=== PATIENT | female | born 1950 | race Caucasian/White ===

== ENCOUNTER 2019-04-16 21:30 | Inpatient (IN) ==
[2019-04-16] MEDS ORDERED: TESSALON PO ONE (22:25)
[2019-04-16] MEDS ORDERED: DUONEB (A & A) INH ONE (22:25)
[2019-04-16 23:19] LABS: ESTIMATED GFR > 60
[2019-04-16 23:22] LABS: AGAP 13; ALBUMIN 4.2 g/dL (3.5-5.0); ALKALINE PHOSPHATASE 26 U/L (32-104); BUN 16 mg/dL (8-22); CALCIUM 7.8 mg/dL (8.8-10.2); CHLORIDE 88 mmol/L (98-107); COSMO 266; CREATININE 0.8 mg/dL (0.5-0.9); GLUCOSE 102 mg/dL (70-104); GOT 25 U/L (10-30); GPT 13 U/L (10-36); POTASSIUM 2.8 mmol/L (3.5-5.1); SODIUM 132 mmol/L (136-145); TCO2 31 mmol/L (25-35); TOTAL PROTEIN 6.5 g/dL (6.3-8.3)
[2019-04-16 23:56] LABS: BASO# 0.01 X1000 (0.0-0.2); BASO% 0.1 % (0.0-0.8); EOS# 0.03 X1000 (0.0-0.7); EOS% 0.3 % (0.0-10.0); HEMATOCRIT 36.2 % (37.0-47.0); HEMOGLOBIN 12.1 g/dL (12.0-16.0); IMM GRAN# 0.03 X1000 (0.0-0.04); IMM GRAN% 0.3 % (0.0-0.5); LYMPH# 0.66 X1000 (1.2-3.4); LYMPH% 6.7 % (20.5-51.1); MCH 29.4 PG (27-31); MCHC 33.4 g/dL (33-37); MCV 87.9 FL (81-99); MONO# 0.68 X1000 (0.11-0.59); MONO% 6.9 % (1.7-9.3); MPV 11.9 FL (7.4-10.4); NEUT# 8.47 X1000 (1.4-6.5); NEUT% 85.7 % (42.2-75.2); PLT 145 X1000 (130-400); RBC 4.12 XMIL (4.2-5.4); RDW 12.9 % (11.5-14.5); WBC 9.88 X1000 (4.8-10.8)
--- NOTE | 2019-04-17 00:22 | EKG Report ---
Test Performed on : 04/16/2019 10:53:49 PM Test Reason : sob Blood Pressure : / mmHG Vent. Rate : 086 BPM Atrial Rate : 086 BPM P-R Int : 142 ms QRS Dur : 078 ms QT Int : 412 ms P-R-T Axes : 065 027 019 degrees QTc Int : 493 ms Poor data quality, interpretation may be adversely affected Sinus rhythm. with occasional premature ventricular complexes. Cannot rule out Anterior infarct , age undetermined Abnormal ECG When compared with ECG of 13-APR-2018 18:28, premature ventricular complexes. are now present Unconfirmed Result
[2019-04-17] MEDS ORDERED: ZITHROMAX 500 MG/NS 500 MG/250 ML IVPB IV ONE (00:41)
[2019-04-17] MEDS ORDERED: ROCEPHIN 2 GM in NS 50 ML IV ONE (00:42)
[2019-04-17] MEDS ORDERED: TYLENOL PO PRN ×2 (01:06→10:06)
[2019-04-17] MEDS ORDERED: NS 1,000 ML IV ONE (01:06)
[2019-04-17] MEDS ORDERED: ZOFRAN IV PRN (01:06)
[2019-04-17] MEDS ORDERED: MORPHINE IV PRN (01:06)
--- NOTE | 2019-04-17 01:06 | PROVIDER DOCUMENTATION ---
This chart was entered by Melissa Diaz Scribe, acting as scribe for Juan Manuel Garcia MD. HPI-Respiratory General - General Chief Complaint: Cough Stated Complaint: cough fever since Thursday Time Seen by Provider: 04/16/19 22:12 Source: patient Allergies/Adverse Reactions: Patient Allergies Allergy/AdvReac Type Severity Reaction Status Date / Time No Known Allergies Allergy Verified 04/16/19 22:07 Home Medications: Home Medication List Medication Instructions Recorded Confirmed Last Taken Type Sertraline HCl [Zoloft] 100 mg PO HS 09/15/14 04/16/19 1 Day Ago History ~12/04/16 Esomeprazole [Nexium] 40 mg PO BID 03/19/15 04/16/19 12/05/16 History Ferrous Sulfate [Iron] 325 mg PO DAILY 03/19/15 04/16/19 1 Day Ago History ~12/04/16 Meclizine [Antivert] 25 mg PO PRN PRN 03/19/15 04/16/19 1 Day Ago History ~12/04/16 Cyclobenzaprine [Flexeril] 10 mg PO TID #20 tablet 12/05/16 04/16/19 Unknown Rx Levothyroxine Sodium 88 mcg PO DAILY 12/05/16 04/16/19 12/05/16 History Trazodone [Desyrel] 100 mg PO QHS 12/05/16 04/16/19 1 Day Ago History ~12/04/16 Oxycodone HCl 10 mg PO TID 12/28/17 04/16/19 Unknown History Buspirone [Buspar] 1 tab PO DAILY 04/16/19 04/16/19 Unknown History Fenofibrate [Tricor] 145 mg PO DAILY 04/16/19 04/16/19 Unknown History Onabotulinumtoxina [Botox Cosmetic] 100 unit IJ DIRECTED 04/16/19 04/16/19 Unknown History Pravastatin Sodium 80 mg PO QHS 04/16/19 04/16/19 Unknown History - History of Present Illness-Resp Nature of Presenting Problem: 68 y/o female presents to the ED with complaint of cough, fever, and increasing SOB since Thursday. The patient gives a history of bronchitis, hyperlipidemia, and chronic pain. Onset/Duration: reports: 4 days ago Timing: reports: getting worse Exposure: reports: unknown cause Cough Quality/Degree: reports: productive cough Episode Frequency: no prior episodes Current Respiratory Medication Therapy: Initiated see nurses note Associated Symptoms: reports: chest pain/soreness, fever/chills, shortness of breath Similar Symptoms Previously?: No Recently seen or treated by another doctor?: No Review of Systems - Adult - REVIEW OF SYSTEMS - ADULT Constitutional: reports: fever. denies: weight gain, weight loss Eyes: reports: no symptoms reported Ears, Nose, Mouth & Throat: reports: no symptoms reported Cardiovascular: denies: irregular heart rate, orthopnea, palpitations, syncope Respiratory: reports: cough (productive), pleurisy, shortness of breath. denies: hemoptysis Gastrointestinal: reports: no symptoms reported Genitourinary: reports: no symptoms reported Musculoskeletal: reports: no symptoms reported Integumentary: reports: no symptoms reported Neurological: reports: no symptoms reported Psychiatric: reports: no symptoms reported Endocrine: reports: no symptoms reported Hematologic/Lymphatic: reports: no symptoms reported Allergic/Immunologic: reports: no symptoms reported All Other Systems: Reviewed and Negative Past History - Adult - PAST MEDICAL HISTORY-ADULT Review of Records: reports: Old Records Reviewed, Nursing Assessment Review, Medications Reviewed Major Childhood Illnesses: reports: denies history Cardiovascular: reports: denies history Respiratory: reports: denies history Gastrointestinal: reports: denies history Obstetrical/Gynecological: reports: denies history Genitourinary: reports: denies history Musculoskeletal: reports: arthritis, chronic pain, fibromyalgia Neurological: reports: denies history Psychiatric: reports: anxiety, depression Endocrine/Immune: reports: denies history Other Conditions: reports: denies history - PRIOR SURGERIES/PROCEDURES Surgical/Procedure History: reports: hysterectomy, other (carpel tunnel left hand) - PRIOR HOSPITALIZATIONS Prior Hospitalizations: reports: none - IMMUNIZATION STATUS Childhood Immunizations: See Nurse Assessment Flu Vaccine: See Nurse Assessment - FAMILY HISTORY Family History: reviewed, not pertinent - SOCIAL HISTORY Smoking: non-smoker Physical Exam-General - PHYSICAL EXAM-ADULT Initial Vital Signs Reviewed: Yes - CONSTITUTIONAL General Appearance: alert, mild distress - HEAD, EARS, NOSE, MOUTH & THROAT HENMT: normocephalic/atraumatic - MUSCULOSKELETAL Extremity: no pedal edema - SKIN Integumentary: normal color, warm/dry. negative: diaphoresis - NEUROLOGIC Neurologic: grossly normal Progress - PLAN OF CARE/RESULTS Progress/Plan/Lab Results: Vital Signs - 8 hr 04/16/19 21:41 04/16/19 22:48 Temperature 99.4 F Pulse Rate 86 86 Respiratory Rate 18 16 Blood Pressure 130/055 O2 Sat by Pulse Oximetry 89 L 94 L Laboratory Results - last 24 hr 04/16/19 04/16/19 04/16/19 22:40 22:40 22:40 WBC 9.88 RBC 4.12 L Hgb 12.1 Hct 36.2 L MCV 87.9 MCH 29.4 MCHC 33.4 RDW Std Deviation 12.9 Plt Count 145 MPV 11.9 H Immature Gran % (Auto) 0.3 Neut % (Auto) 85.7 H Lymph % (Auto) 6.7 L [place] % (Auto) 6.9 Eos % (Auto) 0.3 Baso % (Auto) 0.1 Immature Gran # (Auto) 0.03 Neut # (Auto) 8.47 H Lymph # (Auto) 0.66 L [place] # (Auto) 0.68 H Eos # (Auto) 0.03 Baso # (Auto) 0.01 D-Dimer, Quantitative 1.10 H Sodium Potassium Chloride Carbon Dioxide Anion Gap BUN Creatinine Estimated GFR/1.73 m2 BUN/Creatinine Ratio Glucose Calculated Osmolality Calcium Total Bilirubin AST ALT Alkaline Phosphatase Troponin T < 0.010 Uth-U-Lbtvojfycyg Pept Total Protein Albumin Globulin Albumin/Globulin Ratio Plasma Lactate 04/16/19 04/16/19 04/16/19 22:40 22:40 22:40 WBC RBC Hgb Hct MCV MCH MCHC RDW Std Deviation Plt Count MPV Immature Gran % (Auto) Neut % (Auto) Lymph % (Auto) [place] % (Auto) Eos % (Auto) Baso % (Auto) Immature Gran # (Auto) Neut # (Auto) Lymph # (Auto) [place] # (Auto) Eos # (Auto) Baso # (Auto) D-Dimer, Quantitative Sodium 132 L Potassium 2.8 L Chloride 88 L Carbon Dioxide 31 Anion Gap 13 BUN 16 Creatinine 0.8 Estimated GFR/1.73 m2 > 60 BUN/Creatinine Ratio 20 Glucose 102 Calculated Osmolality 266 Calcium 7.8 L Total Bilirubin 1.00 AST 25 ALT 13 Alkaline Phosphatase 26 L Troponin T Alp-P-Pahtypaojcc Pept 312 Total Protein 6.5 Albumin 4.2 Globulin 2.0 Albumin/Globulin Ratio 2.0 Plasma Lactate 1.4 Orders Category Date Time Status Nursing- Obtain EKG ONCE Care 04/16/19 22:23 Active CTA [CT ANGIOGRM PULMONARY ARTERIES] [CT] Stat Exams 04/16/19 23:36 Ordered cxr [CHEST-1 VIEW] [RAD] Stat Exams 04/16/19 22:23 Taken BLOOD CULTURE [BLDCUL] Stat Lab 04/16/19 22:24 Ordered CBC WITH ELECTRONIC DIFF [HEME] Stat Lab 04/16/19 22:40 Completed COMPREHENSIVE METABOLIC PANEL [CHEM] Stat Lab 04/16/19 22:40 Completed D-DIMER [COAG] Stat Lab 04/16/19 22:40 Completed LACTATE, PLASMA [CHEM] Stat Lab 04/16/19 22:40 Completed PRO B-NATRIURETIC PEPTIDE Stat Lab 04/16/19 22:40 Completed TROPONIN T Stat Lab 04/16/19 22:40 Completed Albuterol 2.5MG/Ipratrop 0.5MG [Duoneb (A & A)] Med 04/16/19 22:25 Discontinued 3 ml INH NOW ONE Azithromycin 500 mg/Ns [Zithromax 500 mg/Ns] Med 04/17/19 00:41 Active 500 mg in 250 ml IV NOW Benzonatate [Tessalon] Med 04/16/19 22:25 Discontinued 200 mg PO NOW ONE CefTRIAXONE [Rocephin] 2 gm Med 04/17/19 00:42 Active 0.9% Sodium Chloride Inj [Ns] 50 ml IV NOW Aerosol Treatments Routine Oth 04/16/19 22:25 Completed Aerosol Treatments Stat Oth 04/16/19 22:25 Completed EKG [EKG] Stat Ther 04/16/19 22:23 Draft Result Diagrams: 04/16/19 22:40 04/16/19 22:40 - EKG 1 Time of EKG reading by physician:: 22:53 EKG Read and Signed by:: Juan Manuel Garcia EKG Interpretation (*Must complete 3 of following elements*): Abnormal Rate: 86 Rhythm: Sinus w/ occasional PVC Comments: cannot rule out anterior infarct age undetermined, poor quality EKG - CONSULTS/PCP/HOSPITALIST Notification #1 *Consult/PCP/Hospitalist*: Dr. Perez, Hospitalist Time Discussed: 00:59 Reason/Comments: pneumonia, low O2 sats Consult Disposition: Admit Departure - Departure Date of Disposition Decision: 04/17/19 Time of Disposition Decision: 01:05 DIAGNOSIS: Pneumonia Qualifiers: Pneumonia type: due to unspecified organism Laterality: right Lung location: upper lobe of lung Qualified Code(s): J18.1 - Lobar pneumonia, unspecified organism Disposition: ADMITTED INPATIENT 09 Certified Medical Emergency: Emergent Condition: Stable Referrals and Follow-Ups: Gui Roa Jr, MD [Primary Care Provider] - - Critical Care Note This patient required my direct & personal management of CC.: No Attestation - Physician/ GUSTAVO Attestation Patient care was provided by Advanced Practice Provider:: No The physician spent face to face time with patient:: Yes Advanced Practice Provider documentation review:: Supervising physician onsite and consulted in the evaluation and care of this patient. The physician did have a face to face encounter with the patient. This chart was documented by the indicated scribe, (Melissa Diaz, Lynnibgraciela) and accurately reflects the services I performed and decisions made by me, Juan Manuel Garcia MD, as attested by the provider's signature.
[2019-04-17] MEDS ORDERED: ROCEPHIN ONE (01:51)
[2019-04-17] MEDS ORDERED: NS 100 ML ONE (01:51)
--- NOTE | 2019-04-17 07:16 | Diag Imaging Result Doc PS360 ---
EXAM: CHEST-1 VIEW 04/16/2019 HISTORY: sob TECHNIQUE: Erect AP portable at 2313 COMMENT: The inspiration is less optimal than on 08/22/2015. There is some increased opacity in the retrocardiac portion of the left lower lobe. There are granulomatous calcifications in the mediastinum and right hilum and the right lower lobe. IMPRESSION: Atelectasis versus pneumonia left lower lobe. Electronically signed by Duncan Willoughby 04/17/2019 7:13 AM
--- NOTE | 2019-04-17 08:27 | Diag Imaging Result Doc PS360 ---
EXAM: CT ANGIOGRM PULMONARY ARTERIES 04/16/2019 HISTORY: r/o PE TECHNIQUE: This exam was performed using automated exposure control, adjustment of mA or kV according to patient size, and/or use of iterative reconstruction technique. COMMENT: There are no filling defects in the pulmonary arteries. The aorta is not distended and there is no evidence of dissection. There are granulomata and calcified nodes are present in both dipak. There is a noncalcified node in the aorticopulmonary window region measuring over 15 mm. There is a tiny pleural effusion on the right and trace pleural fluid on the left. The esophagus is slightly distended with gas superiorly. There is a small pericardial effusion. There are patchy ill-defined opacities in both lower lobes particularly the right lower lobe near the hilum. There is also particular opacity in the superior segment of the left lower lobe and patchy alveolar opacities are present in both upper lobes particularly in the lingula. There is no evidence of acute bony abnormality. Numerous granulomata are present in the spleen. There is a small hiatal hernia. There appears to be some fluid or debris in the bronchi in the lower lobes which may be indicative of aspiration. IMPRESSION: No evidence of pulmonary emboli. Bronchopneumonia. The possibility of aspiration pneumonia cannot be excluded. Electronically signed by Duncan Willoughby 04/17/2019 8:24 AM
[2019-04-17] MEDS ORDERED: ANTIVERT PO PRN (10:05)
[2019-04-17] MEDS ORDERED: ONABOTULINUMTOXINA 100 UNIT IJ SCH (10:15)
[2019-04-17] MEDS ORDERED: BUSPAR PO SCH (10:15)
[2019-04-17] MEDS ORDERED: ZOLOFT PO SCH (10:15)
[2019-04-17] MEDS: TRICOR PO SCH (11:12)
[2019-04-17] MEDS: NEXIUM PO SCH ×2 (11:12→22:18)
[2019-04-17] MEDS: FERROUS SULFATE PO SCH (11:38)
[2019-04-17 11:55] LABS: HEMATOCRIT 36.1 % (37.0-47.0); HEMOGLOBIN 11.9 g/dL (12.0-16.0); MPV 12.5 FL (7.4-10.4); RBC 4.1 XMIL (4.2-5.4); RDW 12.9 % (11.5-14.5); WBC 8.38 X1000 (4.8-10.8)
[2019-04-17] MEDS: ZOFRAN IV PRN (12:10)
[2019-04-17 12:11] LABS: ESTIMATED GFR > 60
[2019-04-17] MEDS: FLEXERIL PO SCH ×2 (12:35→16:24)
[2019-04-17 12:48] LABS: AGAP 14; ALBUMIN 3.9 g/dL (3.5-5.0); ALKALINE PHOSPHATASE 53 U/L (32-104); BUN 9 mg/dL (8-22); CALCIUM 7.9 mg/dL (8.8-10.2); CHLORIDE 90 mmol/L (98-107); COSMO 264; CREATININE 0.7 mg/dL (0.5-0.9); GLUCOSE 116 mg/dL (70-104); GOT 23 U/L (10-30); GPT 12 U/L (10-36); MAGNESIUM 1.6 mg/dL (1.5-2.7); POTASSIUM 2.9 mmol/L (3.5-5.1); SODIUM 132 mmol/L (136-145); TCO2 29 mmol/L (25-35); TOTAL PROTEIN 7.1 g/dL (6.3-8.3)
[2019-04-17] MEDS ORDERED: TESSALON PO PRN (13:50)
--- NOTE | 2019-04-17 14:30 | HISTORY AND PHYSICAL ---
CHIEF COMPLAINT: Cough x4 days. HISTORY OF PRESENT ILLNESS: This is a 68-year-old female with a history of gastroesophageal reflux disease, hypertension, iron-deficiency anemia, and fibromyalgia. She presents to the emergency room complaining of 4 days of cough and increasing shortness of breath with subjective fevers. She denies any syncope or dizziness, any chest pain or palpitations. PAST MEDICAL HISTORY: 1. Hypertension. 2. Hyperlipidemia. 3. Hypothyroid. 4. Fibromyalgia. 5. Chronic pain. PAST SURGICAL HISTORY: Total knee replacement, bilateral carpal tunnel surgery. SOCIAL HISTORY: She denies alcohol, tobacco, or illicit drug use. ALLERGIES: No known drug allergies. HOME MEDICATIONS: A list will be obtained by the nursing staff and once verified will review and restart as appropriate. REVIEW OF SYSTEMS: Discussed with patient with pertinent positives stated in the HPI. She denied any syncope or dizziness; any chest pain or palpitations, PND, orthopnea; any nausea, vomiting, diarrhea, constipation; any black or bloody vomitus or stools, hematuria, dysuria, frequency, urgency. PHYSICAL EXAMINATION: GENERAL: This is a 68-year-old female who is sitting up in the bed in no distress. VITAL SIGNS: Blood pressure is 119/84 with a heart rate of 75, respirations are 20, temperature is 98.1 degrees oral with room air saturations 100%. EYES: Pupils equal, round, and react to light. EOMs are intact. Sclerae are anicteric. HEENT: Head is normocephalic, atraumatic. Mucous membranes are moist. NECK: Supple with trachea midline. CARDIOVASCULAR: Regular rate and rhythm. S1 and S2 are appreciated. No murmur. She has no lower extremity edema. Calves are nontender bilateral with peripheral pulses palpable x4 extremities. PULMONARY: Breath sounds are clear with no increased work of breathing noted. Chest rise and falls symmetric with respiration. Chest wall is nontender to palpation. GASTROINTESTINAL: Abdomen is soft, nontender, nondistended. Bowel sounds in all 4 quadrants. : No CVA or suprapubic tenderness. SKIN: Warm and dry. NEUROLOGIC: She is alert and oriented x3. LABORATORY DATA: WBC is 9.8 with hemoglobin 12.1, hematocrit 36.2, and platelets of 145,000. D- dimer is 1.10. Sodium 132, potassium 2.8, BUN 16, creatinine 0.8 with a glucose of 102. Chest x-ray revealed atelectasis versus left lower lobe pneumonia. CTA pulmonary revealed no evidence of pulmonary emboli. Bronchopneumonia. Blood cultures are pending. ASSESSMENT AND PLAN: 1. Left lower lobe pneumonia. 2. Cough. 3. Elevated D-dimer with a clear to auscultation pulmonary negative for pulmonary emboli. 4. Hyponatremia. 5. Hypokalemia. 6. History of hypothyroid. 7. History of iron-deficiency anemia. Aware. 8. Gastroesophageal reflux disease. 9. Deep venous thrombosis prophylaxis. PLAN: The patient has been admitted to the medical-surgical floor and placed on telemetry which will continue. Incentive spirometer q.4 hours. Up in the chair 3 times a day with meals and p.r.n. We will obtain a bilateral lower extremity Doppler. Identify the home medications and continue. We will supplement potassium and recheck labs in the morning. Continue with IV normal saline hydration and recheck potassium in the morning. We will continue her levothyroxine. Tessalon Perles for cough. We will continue antibiotic coverage of Rocephin and azithromycin. Further treatments pending hospital course. Plan was discussed with Dr. Perez. Dictated by KILO Becerra for Wicho Perez MD cc: KILO Becerra MD
--- NOTE | 2019-04-17 14:46 | HISTORY AND PHYSICAL ---
ADDENDUM: Patient seen and examined by myself. Full note dictated and discussed with nurse practitioner. Patient presented to the hospital with increased cough, congestion, and shortness of breath. She has a history of fibromyalgia and depression. She was subsequently diagnosed with pneumonia. We are going to admit her to the hospital, place her on antibiotics, and oxygen due to her acute hypoxic respiratory failure, and we will follow. cc: Wicho Perez MD
[2019-04-17] MEDS: PERCOCET-10 PO SCH ×2 (14:47→22:15)
[2019-04-17] MEDS: POTASSIUM CHLORIDE 20 MEQ/SWI 20 MEQ/100 ML IVPB IV SCH ×2 (14:47→22:17)
--- NOTE | 2019-04-17 16:45 | Vascular Study Report ---
EXAM: Venous U/S Bilateral Legs 04/17/2019 HISTORY: elevated ddimer TECHNIQUE: Compression venous ultrasound with color Doppler flow, bilateral legs COMMENT: The deep veins of both lower extremities are compressible and demonstrate normal color Doppler flow with augmentation. There are no abnormal fluid collections demonstrated. There is no evidence of superficial venous thrombosis. IMPRESSION: No evidence of deep venous thrombosis. Electronically signed by Duncan Willoughby 04/17/2019 4:43 PM
[2019-04-17] MEDS ORDERED: MIRALAX PO PRN (18:06)
[2019-04-17] MEDS: PRAVACHOL PO SCH (22:15)
[2019-04-17] MEDS: DESYREL PO SCH (22:18)
[2019-04-18] MEDS: NEXIUM PO SCH ×2 (01:27→22:51)
[2019-04-18] MEDS: DESYREL PO SCH ×2 (01:27→22:50)
[2019-04-18] MEDS: ROCEPHIN 1 GM in NS 50 ML IV SCH (01:28)
[2019-04-18] MEDS: SYNTHROID PO SCH (06:09)
[2019-04-18] MEDS: PERCOCET-10 PO SCH ×3 (06:09→22:49)
[2019-04-18 06:31] LABS: HEMATOCRIT 32.8 % (37.0-47.0); HEMOGLOBIN 10.8 g/dL (12.0-16.0); MCHC 32.9 g/dL (33-37); MCV 88.2 FL (81-99); MPV 12.7 FL (7.4-10.4); RBC 3.72 XMIL (4.2-5.4); RDW 12.7 % (11.5-14.5); WBC 6.32 X1000 (4.8-10.8)
[2019-04-18 06:46] LABS: AGAP 10; ALBUMIN 3.3 g/dL (3.5-5.0); ALKALINE PHOSPHATASE 51 U/L (32-104); BUN 8 mg/dL (8-22); CALCIUM 7.6 mg/dL (8.8-10.2); CHLORIDE 94 mmol/L (98-107); COSMO 266; CREATININE 0.7 mg/dL (0.5-0.9); ESTIMATED GFR > 60; GLUCOSE 89 mg/dL (70-104); GOT 18 U/L (10-30); GPT 10 U/L (10-36); MAGNESIUM 1.7 mg/dL (1.5-2.7); POTASSIUM 3.1 mmol/L (3.5-5.1); SODIUM 134 mmol/L (136-145); TCO2 31 mmol/L (25-35); TOTAL PROTEIN 6.2 g/dL (6.3-8.3)
[2019-04-18] MEDS: FLEXERIL PO SCH (10:07)
[2019-04-18] MEDS: TRICOR PO SCH (10:08)
[2019-04-18] MEDS: FERROUS SULFATE PO SCH (10:08)
[2019-04-18] MEDS: ZITHROMAX PO SCH (10:13)
[2019-04-18] MEDS: DUONEB (A & A) INH SCH ×3 (10:24→21:20)
[2019-04-18] MEDS: ZOLOFT PO SCH (17:18)
[2019-04-18] MEDS: BUSPAR PO SCH (17:18)
[2019-04-18] MEDS: MYCOSTATIN SUSP PO SCH (22:49)
[2019-04-18] MEDS: PRAVACHOL PO SCH (22:51)
[2019-04-19] MEDS: ROCEPHIN 1 GM in NS 50 ML IV SCH (03:15)
[2019-04-19] MEDS: DUONEB (A & A) INH SCH ×6 (03:48→23:11)
[2019-04-19] MEDS: NEXIUM PO SCH ×2 (06:36→21:52)
[2019-04-19] MEDS: SYNTHROID PO SCH (06:36)
[2019-04-19] MEDS: PERCOCET-10 PO SCH ×3 (06:36→21:52)
--- NOTE | 2019-04-19 07:33 | PROGRESS NOTE ---
DATE: 04/18/2019 SUBJECTIVE: Patient notes her cough has improved. She still has some shortness of breath. Denies any fevers or chills. States her abdominal pain appears to be better as she is preparing to eat breakfast. PHYSICAL EXAMINATION: Vitals: Temperature 98, pulse 70, respiratory rate 18, blood pressure 101/58. General: Patient is awake. She is alert. She is in no current respiratory distress. HEENT: Normocephalic. Neck: Supple. Cardiovascular: Regular rate. Chest: Minimal wheezing. No crackles. Good air movement. Abdomen: Soft, nondistended. Extremities: Moves all extremities. Neurologic: No focal changes. ASSESSMENT: 1. Left lower lobe pneumonia. 2. Fibromyalgia. 3. Hyponatremia. 4. Hypokalemia. 5. Hypothyroidism. PLAN: We will continue patient in the hospital. Continue oxygen, breathing treatments, incentive spirometry. Continue antibiotics. Discussed with patient the need to get out of bed today and at least sit in a chair and will follow. cc: Wicho Perez MD
[2019-04-19] MEDS ORDERED: KLOR-CON PO ONE (09:19)
[2019-04-19] MEDS: MYCOSTATIN SUSP PO SCH ×4 (09:30→21:52)
[2019-04-19] MEDS: TRICOR PO SCH (09:30)
[2019-04-19] MEDS: ZITHROMAX PO SCH (09:30)
--- NOTE | 2019-04-19 12:10 | PROGRESS NOTE ---
DATE: 04/19/2019 SUBJECTIVE: The patient reports still having some cough, but getting better in comparing with admission. Denies any fever or chills. OBJECTIVE: Vital Signs: Temperature 98.3 degrees, heart rate 74, respiratory rate 16, blood pressure 112/52, O2 saturation 97% on room air. General: This is a chronically ill-appearing, 68- year-old, female, lying in bed in no acute distress. Cardiovascular: S1, S2 heard. No murmurs, gallops, or rubs. Regular rate and rhythm. Respiratory: Clear bilaterally to auscultation. Minimal wheezing noted. No crackles noted. The patient is not using any accessory muscles or having work of breathing. Abdomen: Soft, nontender to palpation. Bowel sounds present. No organomegaly. Extremities: No clubbing, cyanosis, or edema. Peripheral pulses present in both legs. Neurological: The patient is alert and oriented x3. Moves all 4 extremities. LABORATORY DATA: Reviewed. ASSESSMENT AND PLAN: 1. Left lower lobe pneumonia. The patient continues to be on azithromycin and ceftriaxone. Today is day #2 of medications. I think at this point, we will continue with the same management. 2. Fibromyalgia. Will continue with the current pain medications. 3. Hyponatremia. There are no labs from today, but from yesterday, sodium was almost back to normal. 4. Hyponatremia. Will repeat potassium today, and will check BMP tomorrow. 5. Hypothyroidism. Will continue to monitor. 6. Physical deconditioning. Physical Therapy will be consulted. cc: Prasad Hardy MD
[2019-04-19] MEDS: BUSPAR PO SCH (17:50)
[2019-04-19] MEDS: ZOLOFT PO SCH (17:50)
[2019-04-19] MEDS: PRAVACHOL PO SCH (21:53)
[2019-04-19] MEDS: DESYREL PO SCH (23:13)
[2019-04-20 01:28] LABS: BILIRUBIN URINE NEGATIVE (NEGATIVE); BLOOD URINE NEGATIVE (NEGATIVE); GLUCOSE URINE NEGATIVE (NEGATIVE); KETONE URINE NEGATIVE (NEGATIVE); LEUKOCYTES URINE NEGATIVE (NEGATIVE); NITRITE URINE NEGATIVE (NEGATIVE); PROTEIN URINE NEGATIVE (NEGATIVE); SP GRAVITY URINE 1.005; UROBILINOGEN URINE NORMAL
[2019-04-20 01:29] LABS: CLARITY CLEAR (CLEAR); COLOR YELLOW
[2019-04-20 01:42] LABS: URINE BACTERIA 1+ /HFP; URINE CAST NONE SEEN /LPF; URINE CRYSTAL NONE SEEN /HPF; URINE EPITHELIAL CELLS <10 /HPF (<10); URINE SOURCE CLEAN CATCH; URINE WBC <10 /HPF (<10); URINE YEAST NONE SEEN /HPF
[2019-04-20] MEDS: DUONEB (A & A) INH SCH ×4 (03:11→15:20)
[2019-04-20] MEDS: ROCEPHIN 1 GM in NS 50 ML IV SCH (03:35)
[2019-04-20] MEDS: PERCOCET-10 PO SCH ×3 (06:45→22:57)
[2019-04-20] MEDS: NEXIUM PO SCH ×2 (06:45→22:56)
[2019-04-20] MEDS: SYNTHROID PO SCH (06:46)
[2019-04-20 06:50] LABS: AGAP 9; ALBUMIN 3.9 g/dL (3.5-5.0); BUN 5 mg/dL (8-22); CALCIUM 9.3 mg/dL (8.8-10.2); CHLORIDE 93 mmol/L (98-107); COSMO 271; CREATININE 0.6 mg/dL (0.5-0.9); ESTIMATED GFR > 60; GLUCOSE 96 mg/dL (70-104); PHOSPHORUS 2.4 mg/dL (2.7-4.5); POTASSIUM 3.6 mmol/L (3.5-5.1); SODIUM 137 mmol/L (136-145); TCO2 35 mmol/L (25-35)
[2019-04-20] MEDS: ZOFRAN IV PRN (09:06)
--- NOTE | 2019-04-20 09:39 | Diag Imaging Result Doc PS360 ---
EXAM: CHEST-2 VIEWS HISTORY: Left LL pna TECHNIQUE: PA and Lateral chest x-ray COMPARISON: 04/16/2019 FINDINGS: There is cardiomegaly. There is increasing alveolar infiltrate right upper lobe. No definite change in bilateral lower lobe consolidation. There is a small left pleural effusion. Pulmonary vasculature does not appear congested. Upper abdominal small bowel loops appear prominent. Correlate clinically. IMPRESSION: 1.Increasing right upper lobe consolidation. 2.Unchanged bibasilar consolidation left greater than right. 3.Small left effusion. 4.Possible dilated small bowel loops within the upper abdomen. Correlate clinically and follow-up as indicated. Electronically signed by Rachel Rosenberg 04/20/2019 9:37 AM
[2019-04-20] MEDS: TRICOR PO SCH (09:43)
[2019-04-20] MEDS: MYCOSTATIN SUSP PO SCH ×4 (09:43→22:57)
[2019-04-20] MEDS: ZITHROMAX PO SCH (09:43)
[2019-04-20] MEDS ORDERED: VANCOMYCIN IV PER PHARMACY MISC SCH (10:15)
[2019-04-20] MEDS: ZOSYN 3.375 GM in NS 50 ML IV SCH ×3 (11:00→22:57)
[2019-04-20] MEDS ORDERED: VANCOMYCIN 1,500 MG in NS 250 ML IV ONE (11:30)
[2019-04-20 12:16] LABS: BASO# 0.03 X1000 (0.0-0.2); BASO% 0.4 % (0.0-0.8); EOS# 0.34 X1000 (0.0-0.7); EOS% 4.9 % (0.0-10.0); HEMATOCRIT 36.9 % (37.0-47.0); HEMOGLOBIN 11.9 g/dL (12.0-16.0); IMM GRAN# 0.13 X1000 (0.0-0.04); IMM GRAN% 1.9 % (0.0-0.5); LYMPH# 1.06 X1000 (1.2-3.4); LYMPH% 15.4 % (20.5-51.1); MCHC 32.2 g/dL (33-37); MONO# 0.69 X1000 (0.11-0.59); MPV 13.1 FL (7.4-10.4); NEUT# 4.62 X1000 (1.4-6.5); NEUT% 67.4 % (42.2-75.2); PLT 228 X1000 (130-400); RDW 12.9 % (11.5-14.5); WBC 6.87 X1000 (4.8-10.8)
--- NOTE | 2019-04-20 12:28 | PROGRESS NOTE ---
DATE: 04/20/2019 SUBJECTIVE: Patient reports still having some cough and mild shortness of breath while she was walking with Physical Therapy. No other complaints noted. OBJECTIVE: Vital Signs: Temperature 97.8 degrees, heart rate 72, respiratory rate 12, blood pressure 104/48, O2 saturation 95% 2 L nasal cannula. General: This is a chronically ill- appearing 68-year-old female lying in bed, in no acute distress. Cardiovascular: S1, S2 heard. No murmurs, gallops, or rubs. Regular rate and rhythm. Respiratory: There is minimal wheezing noted. No crackles noted. Some coarse breath sounds in both bases. Patient is not using any accessory muscles or having work of breathing. Abdomen: Soft, nontender to palpation. Bowel sounds present. No organomegaly. Extremities: No clubbing, cyanosis, or edema. Peripheral pulses present in both legs. Neurological: Patient is alert and oriented x3. Moves 4 extremities. LABORATORY DATA: There are no labs. There is no CBC from today. BMP is completely normal. ASSESSMENT AND PLAN: 1. Left lower lobe pneumonia. The x-ray from today showed increase in right upper lobe consolidation, unchanged bibasilar consolidation left greater than right with small pleural effusion. Possible dilated small bowel loops within the upper abdomen so at this point, I prefer to change antibiotics to vancomycin and Zosyn. Considering that during all those 3 days, she has not been improving like she was supposed to, I think will transfer this patient to [facility]. We will get pulmonary consult. His primary care physician, Dr. Gilberto Roa, we will notify once this patient arrives there. 2. Fibromyalgia. Will continue with pain medications. 3. Hyponatremia. That condition is resolved. We will continue to monitor. 4. Hypothyroidism. We will continue to monitor. 5. Physical deconditioning. Physical therapy is working with this patient. 6. Disposition: Will transfer this patient to [facility] for evaluation with pulmonary. Will consult his primary care doctor as well. cc: Prasad Hardy MD
--- NOTE | 2019-04-20 14:32 | Diag Imaging Result Doc PS360 ---
KUB ABDOMEN - 04/20/2019 INDICATION: distention COMPARISON: 06/20/2013 FINDINGS: There is perhaps mild constipation of the proximal colon. No bowel obstruction or free air. No abnormal calcifications. IMPRESSION: Mild constipation but no acute disease. Electronically signed by Mynor Matos 04/20/2019 2:30 PM
[2019-04-20] MEDS: ZOLOFT PO SCH (17:06)
[2019-04-20] MEDS: BUSPAR PO SCH (17:06)
--- NOTE | 2019-04-20 18:31 | PROGRESS NOTE ---
DATE: 04/20/2019 SUBJECTIVE: Notified of patient's transfer to [facility] from [facility]. She is a patient of Dr. Gui Roa, who I am on-call for. The patient has been in the hospital at [place] with diagnosis of pneumonia bilaterally and has had some wheezing. She does admit to some possible aspiration as she suffers from GERD. This preceded her illness. She feels better now than she did when she was admitted, but complains of pronounced nausea and headache, feeling bad when she takes DuoNeb, and wonders if that could be changed. She has had some mild constipation. OBJECTIVE: Temperature max 99.8, pulse 75, respirations 19, blood pressure 107/44, O2 saturation on 2 L 97% and 89% on room air.Cardiovascular: RRR without murmur. Lungs: Rhonchi and crackles, especially at the right lung base, somewhat to the left lung base. Also, moderate expiratory wheezes. No cervical LA or TMG. Abdomen: Mild epigastric tenderness. Mild protuberance. Active bowel sounds. Minimal tenderness of lower abdomen. Extremities: No calf tenderness, cords, or edema. Neurologic: Cranial nerves are intact. She moves all extremities well. Alert and oriented x3. LABORATORY AND DIAGNOSTIC DATA: Lab data reviewed from this morning shows white count of 6.8, hemoglobin of 11.9, platelets 228,000. Sodium 137, potassium 3.6, chloride 93, CO2 of 35, BUN 5, creatinine 0.6, phosphorus 2.4, calcium 9.3. Urinalysis negative this morning. Reviewed CT pulmonary angiogram done 04/16/2019, revealing bronchopneumonia, possibility of aspiration pneumonia noted. No evidence of pulmonary emboli. Chest x-ray today reveals increasing right upper lobe consolidation, unchanged basilar left consolidations, small left pleural effusion, some dilated small bowel loops within the upper abdomen. ASSESSMENT: 1. Bilateral pneumonia. Rule out aspiration. 2. Dilated small-bowel loops. Rule out constipation or early ileus. 3. Gastroesophageal reflux disease. 4. Possible thrush. 5. Hypertension. 6. Hyperlipidemia. 7. Hypothyroidism. 8. Fibromyalgia. 9. Chronic pain syndrome. PLAN: She has antibiotics ordered in the form of Zosyn and vancomycin, and Dr. Pandey has been consulted to see the patient. We will change her DuoNeb due to side effects. We will change to Spiriva and Xopenex nebulizer treatments. Consideration will be given to steroids. I will leave that to Dr. Pandey's decision, in particular as the patient has a history of GERD. Continue oxygen supplementation. She is on a regular diet. Physical Therapy is going to work with the patient. She will remain on her antianxiety medicine of BuSpar, p.r.n. Tessalon Perles, nighttime trazodone, and Pravachol. She has morphine ordered for discomfort. Continue to Tricor. She is on double-dose PPI in the form of oral Nexium. Continue Synthroid. She has nystatin ordered 4 times a day. She has p.r.n. MiraLAX, and I have asked the nurse to go ahead and implement that. We will await Dr. Pandey's further assessment. cc: MD Gui Siddiqi Jr, MD
[2019-04-20] MEDS: SPIRIVA INH SCH (18:35)
[2019-04-20] MEDS: XOPENEX NEB INH SCH ×2 (20:03→23:58)
[2019-04-20] MEDS: DESYREL PO SCH (22:59)
[2019-04-20] MEDS: PRAVACHOL PO SCH (23:09)
[2019-04-21] MEDS: ZOSYN 3.375 GM in NS 50 ML IV SCH ×4 (05:01→23:27)
[2019-04-21] MEDS: XOPENEX NEB INH SCH ×6 (05:59→23:13)
--- NOTE | 2019-04-21 06:35 | PULMONOLOGY CONSULTATION ---
DATE: 04/20/2019 REQUESTING PHYSICIAN: Dr. Pascal. REASON FOR CONSULTATION: Worsening pneumonia. HISTORY OF PRESENT ILLNESS: Ms Ortega is a 68-year-old white female who has minimal tobacco history. The patient reports she has severe gastroesophageal reflux along with chronic pain syndrome. The patient recently traveled to [place] on vacation. She reports she ate late every evening, after 8 or 9 p.m. Prior to returning home, she developed a cough along with increased sputum production. She presented to the emergency room on 04/16 with cough, fevers, and increasing sputum production. Maximum temperature since that time is 101.[address] scan of the thorax was performed, which revealed bibasilar infiltrates. PAST MEDICAL HISTORY: 1. Severe gastroesophageal reflux with poor dietary hygiene. 2. Chronic pain syndrome with fibromyalgia. 3. Hypertension. 4. Dyslipidemia. 5. Hypothyroidism. 6. Status post carpal tunnel surgery bilaterally. 7. Status post total knee replacement. SOCIAL HISTORY: The patient has no tobacco or alcohol use history. FAMILY HISTORY: Noncontributory to current presentation. REVIEW OF SYSTEMS: Notable for shortness of breath, increased cough with sputum production, fevers, and occasional sweats. PHYSICAL EXAMINATION: General: Reveals a healthy-appearing white female resting comfortably in her bed, in no distress. Vital signs: She has been afebrile for the last 24 hours. Blood pressure 122/58, heart rate 80, respiratory rate 16, oxygen saturation 89% on 2 L per nasal cannula. HEENT: Pupils are equal and reactive. Oropharynx appears clear. Neck: Supple. Chest: Reveals bibasilar crackles. Cardiac: S1, S2. Abdomen: Soft with good bowel sounds. Extremities: Without edema. LABORATORIES: CT scan as per HPI. IMPRESSION: A 68-year-old with 1. Aspiration pneumonia. 2. Hypoxemic respiratory failure. 3. Gastroesophageal reflux with poor dietary hygiene. 4. Chronic pain syndrome. RECOMMENDATIONS: 1. Continue current bronchial hygiene. We will add incentive spirometry. 2. Ambulate as tolerated. 3. Continue current broad-spectrum antibiotics. 4. Follow up chest x-ray tomorrow. 5. Education on reflux precautions. The patient should not eat after 5 to 6 p.m. each evening. She should not snack after supper. She should elevate the head of her bed. cc: MD Gui Parr Jr, MD
[2019-04-21] MEDS: SYNTHROID PO SCH (06:38)
[2019-04-21] MEDS: PERCOCET-10 PO SCH ×3 (06:38→23:26)
[2019-04-21] MEDS: NEXIUM PO SCH ×2 (06:39→23:26)
[2019-04-21] MEDS: SPIRIVA INH SCH (07:51)
[2019-04-21 07:57] LABS: BASO# 0.03 X1000 (0.0-0.2); BASO% 0.5 % (0.0-0.8); EOS# 0.26 X1000 (0.0-0.7); EOS% 4.4 % (0.0-10.0); HEMATOCRIT 34.4 % (37.0-47.0); HEMOGLOBIN 11.5 g/dL (12.0-16.0); IMM GRAN% 3.4 % (0.0-0.5); LYMPH# 1.16 X1000 (1.2-3.4); LYMPH% 19.6 % (20.5-51.1); MCH 29.5 PG (27-31); MCHC 33.4 g/dL (33-37); MCV 88.2 FL (81-99); MONO# 0.55 X1000 (0.11-0.59); MONO% 9.3 % (1.7-9.3); MPV 11.9 FL (7.4-10.4); NEUT# 3.73 X1000 (1.4-6.5); NEUT% 62.8 % (42.2-75.2); PLT 271 X1000 (130-400); RDW 12.7 % (11.5-14.5); WBC 5.93 X1000 (4.8-10.8)
[2019-04-21 08:27] LABS: AGAP 13; BUN 5 mg/dL (8-22); CALCIUM 8.9 mg/dL (8.8-10.2); CHLORIDE 91 mmol/L (98-107); COSMO 265; CREATININE 0.6 mg/dL (0.5-0.9); ESTIMATED GFR > 60; GLUCOSE 84 mg/dL (70-104); POTASSIUM 3.2 mmol/L (3.5-5.1); SODIUM 134 mmol/L (136-145); TCO2 30 mmol/L (25-35)
--- NOTE | 2019-04-21 09:23 | PROGRESS NOTE ---
DATE: 04/21/2019 SUBJECTIVE: The patient says she is feeling better. She is not coughing quite as much. OBJECTIVE: Vital signs: Show blood pressure 105/54, pulse 79, temperature 99.1 degrees Fahrenheit. Oxygen saturation is 96% on room air. Respirations 18 per minute. HEENT: She is normocephalic. EOMS intact. PERRLA. Throat clear. Lungs: Have a few rales in the bases bilaterally and a little bit right upper lobe. Heart: Regular rate and rhythm without murmurs, gallops, or friction rubs. Abdomen: Soft. Active bowel sounds. No organomegaly or tenderness. Neurologic: Exam intact grossly. LABORATORY: White count is 5960, hemoglobin 11.5, hematocrit 34.4. Potassium was a little low at 3.2. X-RAYS: Chest x-ray yesterday showed increasing right upper lobe consolidation and bilateral lower lobe infiltrates, more on the left than on the right. Abdominal film was done that just showed constipation. ASSESSMENT: Pneumonia and hypokalemia. PLAN: We will get a chest x-ray today. We will supplement potassium. cc: Gui Roa Jr, MD
[2019-04-21] MEDS ORDERED: ANTIVERT PO PRN (09:24)
[2019-04-21] MEDS ORDERED: MIRALAX PO PRN (09:24)
[2019-04-21] MEDS ORDERED: MORPHINE IV PRN (09:25)
[2019-04-21] MEDS ORDERED: TESSALON PO PRN (09:26)
[2019-04-21] MEDS ORDERED: ZOFRAN IV PRN (09:29)
[2019-04-21] MEDS ORDERED: VANCOMYCIN IV PER PHARMACY MISC SCH (09:30)
--- NOTE | 2019-04-21 09:34 | Diag Imaging Result Doc PS360 ---
CHEST-2 VIEWS - 04/21/2019 INDICATION: pneumonia COMPARISON: 04/20/2019 FINDINGS: There is a grossly stable focal infiltrate in the lateral right upper lobe. Stable mild atelectasis or infiltrate in the left lung base. Stable blunting of the left costophrenic angle. Heart size is normal. Lung volumes remain low. IMPRESSION: No change from prior. Electronically signed by Mynor Matos 04/21/2019 9:31 AM
[2019-04-21] MEDS: KLOR-CON PO SCH (11:15)
[2019-04-21] MEDS: TYLENOL PO PRN (11:16)
[2019-04-21] MEDS: MYCOSTATIN SUSP PO SCH ×4 (11:17→23:27)
[2019-04-21] MEDS ORDERED: VANCOMYCIN 1,150 MG in NS 250 ML IV SCH (11:30)
[2019-04-21] MEDS: VANCOMYCIN 1,150 MG in NS 250 ML IV SCH (11:59)
[2019-04-21] MEDS: BUSPAR PO SCH (19:01)
[2019-04-21] MEDS: ZOLOFT PO SCH (19:02)
[2019-04-21] MEDS ORDERED: OXY IR PO ONE (19:36)
--- NOTE | 2019-04-21 21:10 | PULMONOLOGY PROGRESS NOTE ---
DATE: 04/21/2019 SUBJECTIVE: The patient is awake, alert, and conversant. She reports continued occasional sputum production. No sputum has been collected. Overall, she feels better than on admission. OBJECTIVE: Vital Signs: The patient has been afebrile for the last 24 hours. BP 123/50, heart rate 72, respiratory rate 18, oxygen saturation 97% on nasal cannula. HEENT: Pupils are equal and reactive. Oropharynx is clear. Neck: Supple. Chest: Good air entry bilaterally with scattered rhonchi. Cardiac: S1, S2. Abdomen: Soft. Extremities: Without edema. LABORATORIES: Chest x-ray reveals bilateral infiltrates without change. IMPRESSION: A 68-year-old with: 1. Aspiration pneumonia. 2. Gastroesophageal reflux disease, with poor dietary hygiene. 3. Hypoxemic respiratory failure. 4. Chronic pain syndrome. PLAN: 1. Continue bronchial hygiene. 2. Continue to educate about appropriate meal size and when to eat when patient has reflux. 3. Continue broad-spectrum antibiotics. cc: MD Gui Parr Jr, MD
[2019-04-21] MEDS: PRAVACHOL PO SCH (23:26)
[2019-04-22] MEDS: DESYREL PO SCH ×2 (00:15→23:51)
[2019-04-22] MEDS: XOPENEX NEB INH SCH ×6 (03:20→23:09)
[2019-04-22] MEDS: ZOSYN 3.375 GM in NS 50 ML IV SCH ×4 (06:04→20:44)
[2019-04-22] MEDS: PERCOCET-10 PO SCH ×4 (06:04→23:51)
[2019-04-22] MEDS: SYNTHROID PO SCH (06:04)
[2019-04-22] MEDS: NEXIUM PO SCH ×2 (06:04→20:44)
[2019-04-22 07:25] LABS: BASO# 0.02 X1000 (0.0-0.2); BASO% 0.4 % (0.0-0.8); EOS% 6.3 % (0.0-10.0); HEMATOCRIT 33.9 % (37.0-47.0); HEMOGLOBIN 11.2 g/dL (12.0-16.0); IMM GRAN# 0.16 X1000 (0.0-0.04); IMM GRAN% 3.3 % (0.0-0.5); LYMPH# 1.15 X1000 (1.2-3.4); MCH 29.3 PG (27-31); MCV 88.7 FL (81-99); MONO# 0.31 X1000 (0.11-0.59); MONO% 6.5 % (1.7-9.3); MPV 11.4 FL (7.4-10.4); NEUT# 2.86 X1000 (1.4-6.5); NEUT% 59.5 % (42.2-75.2); PLT 307 X1000 (130-400); RBC 3.82 XMIL (4.2-5.4); RDW 12.9 % (11.5-14.5)
[2019-04-22 07:49] LABS: AGAP 12; BUN 4 mg/dL (8-22); CALCIUM 8.8 mg/dL (8.8-10.2); CHLORIDE 94 mmol/L (98-107); COSMO 271; CREATININE 0.6 mg/dL (0.5-0.9); ESTIMATED GFR > 60; GLUCOSE 99 mg/dL (70-104); POTASSIUM 3.3 mmol/L (3.5-5.1); SODIUM 137 mmol/L (136-145); TCO2 31 mmol/L (25-35)
[2019-04-22] MEDS: SPIRIVA INH SCH (08:01)
[2019-04-22] MEDS: KLOR-CON PO SCH (08:45)
[2019-04-22] MEDS: TRICOR PO SCH (08:45)
[2019-04-22] MEDS: MYCOSTATIN SUSP PO SCH ×4 (08:47→23:52)
--- NOTE | 2019-04-22 10:25 | PROGRESS NOTE ---
DATE: 04/22/2019 SUBJECTIVE: I am seeing Ms. Ortega in Dr. Roa' absence today. The patient says she is feeling better. She has mild cough, very slightly productive, feeling better overall. Had a good bowel movement last evening. OBJECTIVE: Vitals: Afebrile, pulse 79, respirations 15, blood pressure 112/53, O2 saturation on 2 L 97%. CV: Regular rate and rhythm without distinct murmur. Lungs: Crackles left lung base. Rare sonorous wheeze. Cannot rule out mild diminished breath sounds right upper lung field. Overall better air movement than 2 to 3 days ago. Abdomen: Soft, active bowel sounds. Nontender, nondistended. No mass. No hepatosplenomegaly. Extremities: No calf tenderness, cords or edema. Neurologic: Cranial nerves are intact. She moves all extremities well. LABS: White count 4.8, hemoglobin 11.2, platelets 307,000. Sodium 137, potassium 3.3, chloride 94, CO2 31, BUN 4, creatinine 0.6, calcium 8.6. ASSESSMENT: 1. Aspiration pneumonia, bilateral. 2. Gastroesophageal reflux disease. 3. Respiratory failure, resolved. 4. Chronic pain syndrome. 5. Hypertension. 6. Hyperlipidemia. 7. Hypothyroidism. 8. Fibromyalgia. PLAN: Continue IV antibiotics of Zosyn and vancomycin. Continue Spiriva and Xopenex nebulizer treatments. Continue b.i.d. Nexium. She has been counseled in regard to better reflux avoidance measures. Physical therapy is working with the patient and will continue to ambulate. She has been ordered to get up in a chair 3 times a day and encouraged her in doing that. We will add Lovenox for prevention of deep venous thrombosis as she is not extremely active. cc: MD Gui Siddiqi Jr, MD
[2019-04-22] MEDS: VANCOMYCIN 1,150 MG in NS 250 ML IV SCH (11:33)
[2019-04-22] MEDS: BUSPAR PO SCH (17:29)
[2019-04-22] MEDS: ZOLOFT PO SCH (17:29)
[2019-04-22] MEDS: PRAVACHOL PO SCH (20:44)
[2019-04-23] MEDS: XOPENEX NEB INH SCH ×6 (03:11→22:58)
[2019-04-23] MEDS: PERCOCET-10 PO SCH ×4 (06:38→22:09)
[2019-04-23] MEDS: NEXIUM PO SCH ×2 (06:38→20:46)
[2019-04-23] MEDS: SYNTHROID PO SCH (06:39)
[2019-04-23] MEDS: ZOSYN 3.375 GM in NS 50 ML IV SCH ×4 (06:39→23:57)
[2019-04-23 07:33] LABS: AGAP 9; BUN 6 mg/dL (8-22); CALCIUM 8.9 mg/dL (8.8-10.2); CHLORIDE 95 mmol/L (98-107); COSMO 269; CREATININE 0.8 mg/dL (0.5-0.9); ESTIMATED GFR > 60; GLUCOSE 92 mg/dL (70-104); POTASSIUM 4.8 mmol/L (3.5-5.1); SODIUM 136 mmol/L (136-145); TCO2 32 mmol/L (25-35)
[2019-04-23 07:39] LABS: BASO# 0.04 X1000 (0.0-0.2); BASO% 0.7 % (0.0-0.8); EOS# 0.41 X1000 (0.0-0.7); EOS% 6.8 % (0.0-10.0); HEMATOCRIT 38.1 % (37.0-47.0); HEMOGLOBIN 12.6 g/dL (12.0-16.0); IMM GRAN# 0.26 X1000 (0.0-0.04); IMM GRAN% 4.3 % (0.0-0.5); LYMPH# 1.59 X1000 (1.2-3.4); LYMPH% 26.2 % (20.5-51.1); MCH 29.4 PG (27-31); MCHC 33.1 g/dL (33-37); MONO# 0.31 X1000 (0.11-0.59); MONO% 5.1 % (1.7-9.3); MPV 11.2 FL (7.4-10.4); NEUT# 3.45 X1000 (1.4-6.5); NEUT% 56.9 % (42.2-75.2); PLT 417 X1000 (130-400); RBC 4.28 XMIL (4.2-5.4); WBC 6.06 X1000 (4.8-10.8)
[2019-04-23] MEDS: SPIRIVA INH SCH (08:00)
[2019-04-23] MEDS: KLOR-CON PO SCH (09:16)
[2019-04-23] MEDS: TRICOR PO SCH (09:16)
[2019-04-23] MEDS: LOVENOX SUBQ SCH (09:16)
[2019-04-23] MEDS: MYCOSTATIN SUSP PO SCH ×4 (09:17→20:47)
[2019-04-23] MEDS: TYLENOL PO PRN (09:29)
--- NOTE | 2019-04-23 13:23 | PROGRESS NOTE ---
DATE: 04/23/2019 SUBJECTIVE: A 68-year-old white female, admitted to the hospital with a pneumonia since a week ago. The patient is doing better. REVIEW OF SYSTEMS: No cough. No chest pain. No fever. PAST MEDICAL HISTORY: Reviewed. PAST SURGICAL HISTORY: Reviewed. MEDICINES: Reviewed. ALLERGIES: Not known. PHYSICAL EXAMINATION: Vital signs: Temperature is 98 degrees, pulse 65, blood pressure is 90/35, 3 L nasal cannula 97%. HEENT: Within normal limits. Neck: Supple. Chest: Bilateral air entry. No signs of pneumonitis. Heart: Sounds are regular. Abdomen: Belly is soft, nontender. Neurological: No deficits. INVESTIGATIONS: CBC: White cell count 6, hematocrit 38, platelets 417,000. Sodium 136, potassium 4.8, chloride 95, BUN 6, creatinine 0.8, glucose 92. Urinalysis is clear. Blood cultures are negative. Chest x-ray on multi- focal infiltrate lateral right upper lobe, slowly improving. Venous Dopplers negative for DVT. Pulmonary angiogram negative for pulmonary embolism. Blood cultures are negative. ASSESSMENT AND PLAN: 1. A 68-year-old white female, pneumonia, multifocal, improving. Currently on IV Zosyn, IV vancomycin and will discontinue vancomycin. We will slowly changed to the p.o. antibiotics. 2. Hyperlipidemia. Pravachol 80 mg daily. Tricor 145 mg daily 3. Deep venous thrombosis prophylaxis with Lovenox. 4. Gastrointestinal prophylaxis with Nexium. 5. Hypothyroidism. On Synthroid 88 mcg daily. 6. Chronic pain, on Percocet. 7. Continue on MiraLAX. 8. Depression, on Zoloft and trazodone. We will repeat the labs and chest x-ray and will follow up. LEVEL OF DOCUMENTATION: 35 minutes. cc: MD Gui Nair Jr, MD MTDD
[2019-04-23] MEDS: NS NEB INH SCH (15:27)
[2019-04-23] MEDS: BUSPAR PO SCH (16:40)
[2019-04-23] MEDS: ZOLOFT PO SCH (16:40)
[2019-04-23] MEDS: DESYREL PO SCH (20:46)
[2019-04-23] MEDS: PRAVACHOL PO SCH (20:46)
[2019-04-24] MEDS: XOPENEX NEB INH SCH ×6 (03:09→23:25)
[2019-04-24] MEDS: PERCOCET-10 PO SCH ×3 (06:09→21:40)
[2019-04-24] MEDS: NEXIUM PO SCH ×2 (06:09→21:40)
[2019-04-24] MEDS: SYNTHROID PO SCH (06:09)
[2019-04-24 06:32] LABS: BASO# 0.06 X1000 (0.0-0.2); BASO% 0.8 % (0.0-0.8); EOS# 0.38 X1000 (0.0-0.7); HEMATOCRIT 40.7 % (37.0-47.0); HEMOGLOBIN 13.5 g/dL (12.0-16.0); IMM GRAN# 0.19 X1000 (0.0-0.04); IMM GRAN% 2.5 % (0.0-0.5); LYMPH% 26.2 % (20.5-51.1); MCH 29.6 PG (27-31); MCHC 33.2 g/dL (33-37); MCV 89.3 FL (81-99); MONO# 0.35 X1000 (0.11-0.59); MONO% 4.6 % (1.7-9.3); NEUT# 4.66 X1000 (1.4-6.5); NEUT% 60.9 % (42.2-75.2); PLT 512 X1000 (130-400); RBC 4.56 XMIL (4.2-5.4); RDW 13.1 % (11.5-14.5); WBC 7.64 X1000 (4.8-10.8)
[2019-04-24 07:17] LABS: AGAP 11; BUN 7 mg/dL (8-22); CALCIUM 9.2 mg/dL (8.8-10.2); CHLORIDE 95 mmol/L (98-107); COSMO 269; CREATININE 0.8 mg/dL (0.5-0.9); ESTIMATED GFR > 60; GLUCOSE 84 mg/dL (70-104); SODIUM 136 mmol/L (136-145); TCO2 30 mmol/L (25-35)
[2019-04-24] MEDS: SPIRIVA INH SCH (08:08)
[2019-04-24] MEDS: NS NEB INH SCH ×3 (08:08→15:09)
--- NOTE | 2019-04-24 08:54 | Diag Imaging Result Doc PS360 ---
EXAM: CHEST-2 VIEWS HISTORY: hypoxia TECHNIQUE: Chest two views COMPARISON: 04/21/2019 FINDINGS: The lungs are well expanded. The heart is not enlarged. The vessels are not distended. There are mild increased interstitial markings in the upper right lung and left base. These appear slightly less prominent. Infiltrates. No pleural effusions. Scattered granuloma. IMPRESSION: Slight interval improvement. Electronically signed by Maurilio Mittal 04/24/2019 8:51 AM
[2019-04-24] MEDS: TRICOR PO SCH (10:10)
[2019-04-24] MEDS: MYCOSTATIN SUSP PO SCH ×3 (10:11→21:41)
[2019-04-24] MEDS: LOVENOX SUBQ SCH (10:11)
[2019-04-24] MEDS: ZOSYN 3.375 GM in NS 50 ML IV SCH ×3 (10:12→21:41)
[2019-04-24] MEDS: KLOR-CON PO SCH (10:19)
--- NOTE | 2019-04-24 14:16 | PROGRESS NOTE ---
DATE: 04/24/2019 SUBJECTIVE: The patient is off oxygen and doing well. REVIEW OF SYSTEMS: None reported. PHYSICAL EXAMINATION: Vital Signs: Temperature 97.6 degrees, pulse 70, blood pressure is 112 x 70. HEENT: Within normal limits. Neck: Supple. Chest: No signs of pneumonitis. Heart: Sounds are regular. No edema noted. LABORATORY DATA: CBC: White cell count 7.6, hematocrit 40.7, platelets 512,000. SMA-7 was normal and chest x-ray with improvement of left lower lobe and right upper lobe infiltrate. ASSESSMENT AND PLAN: 1. Community-acquired pneumonia, doing well. Normal white cell count. Clinical and radiological picture is improving. Continue IV antibiotics with IV Zosyn. 2. Hypothyroidism. Synthroid. 3. Deep vein thrombosis and gastrointestinal prophylaxis as per order sheet. 4. Hyperlipidemia on Pravachol. 5. Depression on Desyrel 100 mg at bedtime. 6. Blood cultures are negative. 7. The patient is anxious to go home. We will discharge in the morning by Dr. Roa. LEVEL OF DOCUMENTATION: 25 minutes. cc: MD Gui Nair Jr, MD
[2019-04-24] MEDS: BUSPAR PO SCH (18:38)
[2019-04-24] MEDS: ZOLOFT PO SCH (18:38)
[2019-04-24] MEDS: PRAVACHOL PO SCH (21:40)
[2019-04-24] MEDS: DESYREL PO SCH (21:40)
[2019-04-25] MEDS: ZOSYN 3.375 GM in NS 50 ML IV SCH (03:17)
[2019-04-25] MEDS: XOPENEX NEB INH SCH ×2 (03:41→08:30)
[2019-04-25] MEDS: SYNTHROID PO SCH (06:29)
[2019-04-25] MEDS: NEXIUM PO SCH (06:29)
[2019-04-25] MEDS: PERCOCET-10 PO SCH (06:30)
--- NOTE | 2019-04-25 06:33 | Diag Imaging Result Doc PS360 ---
EXAM: CHEST-1 VIEW HISTORY: SOB TECHNIQUE: Chest single view COMPARISON: 04/24/2019 FINDINGS: Poor inspiratory effort. The heart is not enlarged. The vessels are not distended. Interstitial markings in the right lung are slightly less prominent. No effusion identified. IMPRESSION: Slight interval improvement Electronically signed by Maurilio Mittal 04/25/2019 6:30 AM
[2019-04-25 07:35] VITALS: BP 125/56
[2019-04-25] MEDS: SPIRIVA INH SCH (08:30)
[2019-04-25] MEDS: KLOR-CON PO SCH (09:20)
[2019-04-25] MEDS: TRICOR PO SCH (09:20)
[2019-04-25] MEDS ORDERED: PNEUMOVAX 23 IM ONE (11:18)
--- NOTE | 2019-04-26 08:09 | DISCHARGE SUMMARY ---
ADMISSION DATE: 04/17/2019 DISCHARGE DATE: 04/25/2019 FINAL DIAGNOSES: 1. Left lower lobe pneumonia, resolving. 2. Gastroesophageal reflux disease. 3. Hypertension. 4. Hypothyroidism. 5. Chronic pain syndrome. DISCHARGE MEDICATIONS: Discharge medications include her regular home medications plus Cefzil 500 mg p.o. b.i.d. for 10 days and Mucinex DM 1 p.o. b.i.d. for 10 days. PRESENT ILLNESS: Patient is a 68-year-old, who presented to [facility] with cough and increasing shortness of breath. She was treated there, and they felt like she was getting worse and wanted to transfer her to [facility]. She is my regular patient, but did not know she should probably come to [facility] as she wanted me to take care of her initially. However, after transfer we did get a consult with Dr. Pandey, boiler repairman, who placed her on antibiotics, and she has continued to get better fairly quickly. Chest x-ray is nearly clear now. She is feeling much better. OBJECTIVE: Vital Signs: Blood pressure is 108/47, respirations 17, pulse 64, temperature 98.3 degrees Fahrenheit. HEENT: She is normocephalic. PERRLA. Throat clear. Lungs: Clear to auscultation and percussion without rhonchi, rales or wheezes, except for occasional crackle in the left base. Heart: Regular rate and rhythm without murmurs, gallops, friction rubs. Abdomen: Soft. Active bowel sounds. No organomegaly or tenderness. Neurologic: Exam intact grossly. Reflexes 1+ all. PLAN: We will discharge with above medications. I will see her back in my office within the next week. cc: Gui Roa Jr, MD
== END 2019-04-25 11:36 | disposition home or self-care (01) | DRG 178 ==
LOC: P.ED 21:30 → SUATTDRO 04-17 02:21 → P.MEDSURG 04-17 02:21 → 3N 04-20 16:11
PROVIDERS: ADMIT Emergency Medicine; ATTEND Emergency Medicine